=== PATIENT | male | born 1985 | race Caucasian/White ===

== ENCOUNTER → 2023-08-05 09:13 | Outpatient (BNVA) | payer OTHER, SELFPAY | PROVIDERS: Visit Provider Nurse Practitioner Psychiatric/Mental Health | DX: Z79.899 Other long term (current) drug therapy (principal) | CPT/HCPCS: 80053 ==

== ENCOUNTER 2024-05-01 14:11 | Emergency (ER) | payer SELFPAY ==
[2024-05-01 14:24] VITALS: BP 158/98; PULSE 91; RESP 17; TEMP 36.9; O2SAT 98; BMI 25.0
[2024-05-01 14:27] VITALS: BP 162/90; PULSE 80; O2SAT 98
--- NOTE | 2024-05-01 14:57 | CTR_ITS ---
PROCEDURE INFORMATION: Exam: CT Abdomen And Pelvis Without Contrast Exam date and time: 05/01/2024 3:05 PM Age: 38 years old Clinical indication: Abdominal pain; Additional info: Pain, hematuria TECHNIQUE: Imaging protocol: Computed tomography of the abdomen and pelvis without contrast. Radiation optimization: All CT scans at this facility use at least one of these dose optimization techniques: automated exposure control; mA and/or kV adjustment per patient size (includes targeted exams where dose is matched to clinical indication); or iterative reconstruction. COMPARISON: No relevant prior studies available. RADIATION DOSE METRICS: Total DLP (mGy-cm): 468.23 FINDINGS: Lungs: Lung bases are clear. Liver: Liver is enlarged measuring 23 cm. Diffuse decrease in hepatic parenchymal density, consistent with fatty infiltration. Gallbladder and biliary ducts: The gallbladder is contracted. There is no evidence of biliary ductal dilation. Pancreas: The pancreas is normal. Spleen: Spleen is enlarged measuring 14 cm in length. Adrenal glands: Adrenal glands are normal. Kidneys and ureters: The kidneys are normal. No hydroureter. Stomach and bowel: Mild constipation. No bowel obstruction or significant bowel wall thickening. The stomach is normal. The duodenum is unremarkable. Appendix: Appendix is not confidently visualized on this examination, however there are no significant inflammatory changes to the right lower quadrant. Intraperitoneal space: There is no evidence of free intraperitoneal or pelvic fluid. No intraperitoneal fluid collections. There is no free intraperitoneal air. Vasculature: No aortic aneurysms. Lymph nodes: There is no evidence of lymphadenopathy. Urinary bladder: Bladder is decompressed and difficult to evaluate. Mild circumferential urinary bladder wall thickening. No bladder stones. Reproductive: Reproductive organs are unremarkable as visualized. Bones/joints: No acute skeletal abnormality or aggressive osseous lesion. Soft tissues: No acute body wall soft tissue findings. CT/CT kidney stone [id number] IMPRESSION: 1. Nonspecific hepatosplenomegaly and mild hepatic steatosis. 2. Despite bladder under distension, I question mild cystitis.
[2024-05-01 14:58] LABS: Bilirubin Urine Negative (Negative); Blood Urine 2+ (Negative); Glucose Urine UA Negative (Normal); Ketones Urine Trace (Negative); Leukocyte Esterase Urine 2+ (Negative); Nitrate Urine Negative (Negative); Protein Urine 3+ (Negative); Specific Gravity, Urine 1.022 (1.005-1.030); Urine Appearance Clear (CLEAR); Urine Color Yellow (Yellow)
[2024-05-01 15:03] LABS: Add Urine Microscopic? YES; Bacteria Urine Trace /hpf; Hyaline Casts Urine 1.74 /lpf; RBC Urine >100 /hpf (0-2); Squamous Epithelial Cell Urine 0-5 /hpf (0-5); WBC Urine >100 /hpf (0-5)
[2024-05-01 15:19] LABS: UA Slide Review UA Slide Review Perf
[2024-05-01 15:20] LABS: Add Urine Culture? Yes
[2024-05-01] MEDS: sodium chloride 0.9% 1,000 ML 999 ML IV ×2 (15:24→16:38)
[2024-05-01] MEDS: ketorolac 30 mg/mL INJ IVP (15:26)
[2024-05-01 15:56] LABS: Basophils # 0.1 10^3/uL (0.0-0.1); Basophils % 0.7 %; Eosinophils # 0.1 10^3/uL (0.0-0.8); Eosinophils % 0.9 %; Hematocrit 48.1 % (37-53); Lymphocytes # 1.1 10^3/uL (0.8-4.8); Lymphocytes % 9.9 %; Mean Corpuscular HGB Conc 34.7 g/dL (30-55); Mean Corpuscular Hemoglobin 29.9 pg (27-33); Mean Platelet Volume 9.5 fL (7.4-10.4); Monocytes # 0.6 10^3/uL (0.2-0.9); Monocytes % 5.3 %; Neutrophils # 8.81 10^3/uL (1.8-7.7); Neutrophils % 82.9 %; Nucleated Red Blood Cells % 0 %; Platelet Count 226 10^3/cmm (157-399); Red Blood Count 5.59 10^6/uL (3.85-5.65); Red Cell Distribution Width 13.2 % (12.1-15.1); White Blood Count 10.62 10^3/uL (3.29-11.43)
[2024-05-01] MEDS: sulfamethoxazole-trimeth DS 160-800 mg Tablet 1 TAB PO (16:00)
[2024-05-01 16:15] LABS: Anion Gap 15.8 (5-19); Blood Urea Nitrogen 15 mg/dL (6-20); Calcium 9.4 mg/dL (8.5-10.5); Carbon Dioxide 27 mmol/L (22-29); Chloride 103 mmol/L (98-107); Creatinine Clr Calc Pharmacy 93.8644; Glomerular Filtration Rate 61.5 mL/min (90-130); Glucose 88 mg/dL (65-115); Osmolality Calculated 292 mOsm/kg (285-295); Potassium 4.8 mmol/L (3.5-5.1); Sodium 141 mmol/L (136-145)
[2024-05-01 16:27] VITALS: PULSE 84; O2SAT 99
--- NOTE | 2024-05-01 16:27 | ED_ITS ---
HPI - Male Genitourinary 2 General: Chief complaint: Urogenital-Male Stated complaint: bloody urine Time Seen by Provider: 05/01/24 14:31 History of Present Illness: Patient is a 38-year-old male that presents to the emergency department with dysuria, hematuria. Onset today. Patient notes he did have some flank pain bilaterally in the last couple days but this has resolved. Now he is primarily complaining of suprapubic abdominal discomfort or cramping with burning, frequency. Denies any prior symptoms like this. Denies any rashes/lesions. Denies penile discharge Associated symptoms: Reports dysuria and hematuria; Deny nausea or vomiting Related Data Home Medications Medication Instructions Recorded Confirmed cetirizine 10 mg tablet (All Day 10 mg PO DAILY PRN 03/27/23 11/05/23 Allergy (cetirizine)) Previous Rx's Medication Instructions Recorded atomoxetine 40 mg capsule 40 mg PO QAM #30 caps 03/04/24 (Strattera) sulfamethoxazole 800 1 tab PO BID 7 days #14 tabs 05/01/24 mg-trimethoprim 160 mg tablet (Bactrim DS) Allergies Allergy/AdvReac Type Severity Reaction Status Date / Time No Known Allergies Allergy Verified 11/05/23 09:42 Review of Systems 2 General: Reports: 10 or more systems reviewed and unremarkable except in HPI and below Const: Denies: fever(s), chills, change in appetite, change in weight, fatigue or malaise Eyes: Denies: change in vision, eye discomfort, eye discharge or eye redness ENMT: Denies: throat pain, enlarged tonsils, odynophagia, hoarseness, ear or mastoid pain, ear discharge, change in hearing, tinnitus, nasal discharge, nasal congestion, post nasal drip or sinus pain Card: Denies: chest pain, palpitations, irregular heart rhythm, edema, dyspnea on exertion, orthopnea or leg pain with exertion Resp: Denies: dyspnea, productive cough, non-productive cough, wheezing, stridor or chest congestion GI: Denies: abdominal pain, nausea, vomiting, dysphagia, diarrhea, constipation, bloating, GI cramping or hematochezia : Reports: flank pain, dysuria, urinary frequency, urinary urgency and hematuria; Denies: urinary hesitancy, oliguria, genital pain, genital lesions or penile discharge Musc: Denies: neck pain, back pain, extremity pain, joint pain, joint swelling, joint redness, joint warmth or muscle weakness Skin/Breast: Denies: rash, pruritus, erythema, photosensitivity or new lesions Neuro: Denies: headache(s), numbness in extremities, weakness in extremities, sensory changes, lack of coordination, difficulty walking, frequent falls, dizziness, confusion, Slurred speech present, difficulty communicating thoughts, seizure-like activity or involuntary movements Endo: Denies: polyuria, polydipsia or tired all the time Lazarus/Lymph: Denies: easy bruising or easy bleeding PFSH ED 2 PFSH: Medical History (Updated 05/01/24 @ 17:10 by HARPREET Fonseca) Cannabis use disorder, moderate, in early remission Last use Jun 2023 ADHD (attention deficit hyperactivity disorder), inattentive type Psychiatric care Physical Exam 2 Const: COMMON NORMALS: no acute distress, patient oriented x3 and alert G ENERAL APPEARANCE: cooperative ORIENTATION/CONSCIOUSNESS: Yes awake, Yes oriented to person, Yes oriented to place and Yes oriented to time Neck/C-Spine: COMMON NORMALS: full ROM GENERAL: Yes normal visual inspection Lymph: LYMPHATIC: no lymphadenopathy noted Chest: COMMONS NORMALS: normal inspection of the chest Breast/axilla inspection: Yes no chest deformity, asymmetry, normal contours, no nodules, masses, tenderness Resp: COMMON NORMALS: normal respiratory effort, No retractions and No use of accessory muscles EFFORT & INSPECTION: Yes able to speak in complete sentences and Yes symmetric chest movement Cardio: COMMON NORMALS: regular rate and Peripheral pulses 2+ throughout R ATE: regular rate PERIPHERAL PULSES: Peripheral pulses 2+ throughout GI: COMMON NORMALS: Normal to inspection, nondistended, normoactive bowel sounds present, Soft to palpation, non-tender and No hepatosplenomegaly present INSPECTION: Yes normal to inspection PALPATION: Yes Soft to palpation and Yes No hepatosplenomegaly present RECTAL EXAM: Yes deferred Neuro: COMMON NORMALS: patient oriented x3 SENSORIUM/ORIENTATION: Yes alert, Yes oriented to person, Yes oriented to place and Yes oriented to time CRANIAL NERVES: Yes CN normal except as noted Psych: COMMON NORMALS: mental status grossly normal, Normal thought process present, cooperative, activity/motor behavior normal, denies homicidal ideation and denies suicidal ideation THOUGHT PROCESS: Normal thought process present Skin: COMMON NORMALS: no rashes or lesions noted, no wounds and turgor normal GENERAL SKIN EXAM: no rashes or lesions noted and turgor normal Course 2 Vital Signs: Vital signs: Vital Signs Temperature 98.4 F 05/01/24 14:24 Pulse Rate 75 05/01/24 17:40 Respiratory Rate 17 05/01/24 14:24 Blood Pressure 151/94 05/01/24 17:40 Pulse Oximetry 100 05/01/24 17:40 Oxygen Delivery Me thod Room Air 05/01/24 16:27 MDM - Male Medical Decision Making Patient was evaluated in the emergency department today for complaints of urinary changes that include frequency, urgency, burning, hematuria. Patient denies prior event similar. He did undergo laboratory evaluation as well as UA and CT for renal stone protocol. Urinalysis does reveal 2+ blood, leukoesterase, trace bacteria. He underwent CBC and CMP which revealed no significant leukocytosis, anemias, electrolyte abnormalities. He does have an elevated creatinine though. He did undergo CT imaging for renal stone. Imaging reviewed hepatosplenomegaly and mild hepatic steatosis. We did check PT/INR as well as liver enzymes which were all within normal limits. He was treated here in the emergency department with Toradol for pain which helped tremendously, started on antibiotics, and given 2 L of normal saline. He does not have primary care established as of yet. I have consulted case management to assist in establishing care. Patient needs to follow-up with primary care in the next week or 2. Patient is agreeable and all questions answered Lab Data 05/01/24 15:25 05/01/24 15:25 Radiology Impressions Abdomen/Pelvis CT 05/01/24 14:57 IMPRESSION: 1. Nonspecific hepatosplenomegaly and mild hepatic steatosis. 2. Despite bladder under distension, I question mild cystitis. Laboratory Results WBC 10.62 10^3/uL (3.29-11.43) 05/01/24 15:25 RBC 5.59 10^6/uL (3.85-5.65) 05/01/24 15:25 Hgb 16.70 g/dL (11.27-16.99) 05/01/24 15:25 Hct 48.1 % (37-53) 05/01/24 15:25 MCV 86.0 fl (82-101) 05/01/24 15:25 MCH 29.9 pg (27-33) 05/01/24 15:25 MCHC 34.7 g/dL (30-55) 05/01/24 15:25 RDW 13.2 % (12.1-15.1) 05/01/24 15:25 Plt Count 226 10^3/cmm (157-399) 05/01/24 15:25 MPV 9.5 fL (7.4-10.4) 05/01/24 15:25 Neut % (Auto) 82.9 % 05/01/24 15:25 Lymph % (Auto) 9.9 % 05/01/24 15:25 [place] % (Auto) 5.3 % 05/01/24 15:25 Eos % (Auto) 0.9 % 05/01/24 15:25 Baso % (Auto) 0.7 % 05/01/24 15:25 Neut # (Auto) 8.81 10^3/uL (1.8-7.7) H 05/01/24 15:25 Lymph # (Auto) 1.1 10^3/uL (0.8-4.8) 05/01/24 15:25 [place] # (Auto) 0.6 10^3/uL (0.2-0.9) 05/01/24 15:25 Eos # (Auto) 0.1 10^3/uL (0.0-0.8) 05/01/24 15:25 Baso # (Auto) 0.1 10^3/uL (0.0-0.1) 05/01/24 15:25 Nucleated RBC % (auto) 0 % 05/01/24 15:25 Nucleated RBCs # 0.0 /100WBC 05/01/24 15:25 PT 13.60 SECONDS (12.1-14.9) 05/01/24 15:25 INR 1.01 (0.8-1.2) 05/01/24 15:25 Sodium 141 mmol/L (136-145) 05/01/24 15:25 Potassium 4.8 mmol/L (3.5-5.1) 05/01/24 15:25 Chloride 103 mmol/L (98-107) 05/01/24 15:25 Carbon Dioxide 27 mmol/L (22-29) 05/01/24 15:25 Anion Gap 15.8 (5-19) 05/01/24 15:25 BUN 15 mg/dL (6-20) 05/01/24 15:25 Creatinine 1.3 mg/dL (0.7-1.2) H 05/01/24 15:25 GFR Calculation 61.5 mL/min (90-130) L 05/01/24 15:25 Glucose 88 mg/dL (65-115) 05/01/24 15:25 Calculated Osmolality 292 mOsm/kg (285-295) 05/01/24 15:25 Calcium 9.4 mg/dL (8.5-10.5) 05/01/24 15:25 GGT 16 U/L (8-61) 05/01/24 15:25 AST 21 U/L (0-40) 05/01/24 15:25 ALT 19 U/L (0-41) 05/01/24 15:25 Lactate Dehydrogenase 156 U/L (135-225) 05/01/24 15:25 Urine Color Yellow (Yellow) 05/01/24 14:38 Urine Appearance Clear (CLEAR) 05/01/24 14:38 Urine pH 7.0 (5-7) 05/01/24 14:38 Ur Specific [place] 1.022 (1.005-1.030) 05/01/24 14:38 Urine Protein 3+ (Negative) A 05/01/24 14:38 Urine Glucose (UA) Negative (Normal) 05/01/24 14:38 Urine Ketones Trace (Negative) 05/01/24 14:38 Urine Blood 2+ (Negative) A 05/01/24 14:38 Urine Nitrate Negative (Negative) 05/01/24 14:38 Urine Bilirubin Negative (Negative) 05/01/24 14:38 Urine Urobilinogen 1.0 mg/dL (Negative) 05/01/24 14:38 Ur Leukocyte Esterase 2+ (Negative) A 05/01/24 14:38 Urine RBC >100 /hpf (0-2) H 05/01/24 14:38 Urine WBC >100 /hpf (0-5) H 05/01/24 14:38 Ur Squamous Epith Cells 0-5 /hpf (0-5) 05/01/24 14:38 Amorphous Sediment Not Reportable 10/19/24 14:38 Urine Bacteria Trace /hpf (NONE) 05/01/24 14:38 Hyaline Casts 1.74 /lpf 05/01/24 14:38 All radiology interpretation(s) finalized by discharge Discharge Plan Discharge Patient Disposition: Home Clinical Impression: Urinary tract infection, Elevated serum creatinine, Fatty liver, Splenomegaly Condition: Stable Prescriptions: New sulfamethoxazole-trimethoprim [Bactrim DS] 800-160 mg tablet 1 tab PO BID 7 Days Qty: 14 0RF No Action cetirizine [All Day Allergy (cetirizine)] 10 mg tablet 10 mg PO DAILY PRN atomoxetine [Strattera] 40 mg capsule 40 mg PO QAM Qty: 30 0RF Rx Instructions: Take one capsule every morning Discharge Orders: Discharge ED (Routine); Ordered 05/01/24 Ordered By: Samanta Sherman Discharge Diet: Advance as tolerated Discharge Activity: Resume usual activity Patient Instructions: Impaired Kidney Function (ED), Pain Management, Urinary Tract Infection - Men Activity Restrictions/Additional Instructions: Please take antibiotics as prescribed Our case therapist will be helping you establish primary care services on Friday. Please expect their call. If you do not receive a call then you need to establish primary care on your own. I did not prescribe the Toradol, the drug we discussed and that was so helpful today. I did not do this because it is a nonsteroidal anti-inflammatory drug like ibuprofen. If your kidneys are not working appropriately you should avoid these drugs. I want to use Tylenol for pain relief. Your liver and spleen are both enlarged. You need to avoid any contact sports. If you drink alcohol routinely, you need to avoid alcohol at this time. You do have labs pending?liver enzymes but this will be used for trending purposes. Coding Level of Care Code ED Instant Printer Operator for Rufina Olivo
[2024-05-01 17:26] LABS: Alanine Aminotransferase 19 U/L (0-41); Aspartate Amino Transferase 21 U/L (0-40); Gamma Glutamyl Transferase 16 U/L (8-61); Lactate Dehydrogenase 156 U/L (135-225)
[2024-05-01 17:34] LABS: INR 1.01 (0.8-1.2)
[2024-05-01 17:40] VITALS: BP 151/94; PULSE 75; O2SAT 100
--- NOTE | 2024-05-03 08:20 | DCPLANNER ---
messaged [facility] for er f/u, pcp est
== END 2024-05-01 17:41 | disposition home or self-care (01) ==
PROVIDERS: Emergency Medicine; Emergency Provider Nurse Practitioner
DX: N39.0 Urinary tract infection, site not specified (principal); R79.89 Other specified abnormal findings of blood chemistry; R16.1 Splenomegaly, not elsewhere classified; K76.0 Fatty (change of) liver, not elsewhere classified
CPT/HCPCS: 74176; 80048; 81001; 82977; 83615; 84450; 84460; 85025; 85610; 87077; 87086; 87186; 96361; 96374; 99285; J1885; J7030